=== PATIENT | male | born 1990 | race Caucasian/White ===

== ENCOUNTER 2021-09-04 15:22 | Emergency (ER) | payer OTHER, SELFPAY ==
--- NOTE | ~2021-09-04 | US_ITS ---
US right upper quadrant DATE: 09/04/2021 16:50 INDICATION: Abdominal pain TECHNIQUE: Real-time imaging and Doppler analysis of liver, pancreas, gallbladder areas COMPARISON: None FINDINGS: No gallstones, gallbladder wall thickening or abnormal pericholecystic fluid collection is evident. Negative sonographic Bartlett's sign. The common bile duct measures 4 mm, normal. No hepatic space-occupying mass lesion or normal hepatope rene portal venous flow. The pancreas is partially obscured by bowel gas IMPRESSION: Limited evaluation of pancreas due to overlying bowel gas; otherwise negative examination Reviewed, dictated and finalized at [facility] Reviewed, dictated and finalized at [facility] WORKER IMPRESSION: Limited evaluation of pancreas due to overlying bowel gas; otherwis e negative examination
--- NOTE | ~2021-09-04 | CT_ITS ---
EXAMINATION: CT abdomen pelvis w con DATE: 09/04/2021 17:24 INDICATION: Right upper quadrant and epigastric abdominal pain for 2 days TECHNIQUE: Computed tomography (CT) of the abdomen and pelvis was performed with 100 cc Omnipaque 350 intravenous contrast. Automated exposure control and iterative reconstruction technique were employe d. Exam dose: 1330.65 mGy-cm total exam DLP. COMPARISON: September 04, 2021 right upper quadrant abdominal ultrasound examination FINDINGS: Multiple scattered bilateral lower lung small lung opacities Minimal discoid atelectasis or scarring in the anterior basilar segment of the right lower lobe. Ther e is focal infiltrate or atelectasis in the anterior basilar segment of the left lower lobe. Normal heart size. No pericardial or pleural effusion. The liver, gallbladder, bile ducts, spleen, pancreas, adrenal glands and kidneys are unremarkable. Normal caliber of the abdominal aorta. No intraperitoneal or retroperitoneal or pelvic mass lesion or adenopathy or ascites. Normal appendix. Minimal colonic diverticulosis; no CT evidence of diverticulitis. No bowel obstructi on, bowel wall thickening, pneumatosis or intraperitoneal free air. Small bilateral fat-containing inguinal hernias. Small fat-containing umbilical hernia. There is levoscoliosis of the lumbar spine, dextro scoliosis of the thoracic spine. Mild anterior wedge compression fracture deformity of T12, likely chronic. No suspicious osteolytic o r osteoblastic lesions. IMPRESSION: Mild focal infiltrate or atelectasis in the anterior basilar segment of the left lower l obe Minimal discoid atelectasis or scarring in the anterior basilar segment of the right lower lobe Scattered bilateral 5 mm or smaller lung nodules Normal appendix Minimal colonic diverticulosis; no evidence of diverticulitis Reviewed, dictated and finalized at [facility] Reviewed, dictated and finalized at [facility] RECORDER IMPRESSION: Mild focal infiltrate or atelectasis in the anterior basilar segme nt of the left lower lobe Minimal discoid atelectasis or scarring in the anterior basilar segment of the right lower lobe Scattered bilateral 5 mm or smaller lung nodules Normal appendix Minimal colonic diverticulosis; no evidence of diverticulitis
[2021-09-04 15:24] VITALS: BP 188/120; PULSE 98; RESP 20; TEMP 36.4; O2SAT 99
[2021-09-04 15:53] LABS: Basophils Absolute Auto 0.1 K/mm3 (0.0-0.1); Basophils Percent Auto 0.4 % (0.2-1.2); Eosinophils Absolute Auto 0.2 K/mm3 (0-0.3); Eosinophils Percent Auto 1.4 % (0-4.4); Hematocrit 50.9 % (42.0-52.0); Hemoglobin 17.2 g/dL (14.0-18.0); Immature Granulocyte Absolute 0.04 K/mm3 (0.00-0.031); Immature Granulocyte Percent A 0.4 % (0-0.5); Lymphocytes Absolute Auto 3.42 K/mm3 (0.9-3.2); Mean Corpuscular HGB Conc 33.8 g/dl (32-36); Mean Corpuscular Hemoglobin 30.3 pg (26-34); Mean Corpuscular Volume 89.8 fl (80-100); Mean Platelet Volume 11.2 fl (7.4-10.4); Monocytes Absolute Auto 0.7 K/mm3 (0.1-0.6); Monocytes Percent Auto 5.9 % (2.6-8.5); Neutrophils Absolute Auto 7.1 K/mm3 (1.3-6.7); Neutrophils Percent Auto 61.9 % (45.5-73.1); Platelet Count Result 255 k/mm3 (150-375); Red Blood Count 5.67 M/mm3 (4.6-6.20); White Blood Count 11.4 K/mm3 (4.5-10.0)
[2021-09-04 15:57] LABS: Add Urine Microscopic? NO; Appearance Urine Clear (Clear); Bilirubin Urine Negative (Negative); Blood Urine Negative (Negative); Color Urine Yellow (Yellow); Glucose Urine UA Negative (Negative); Ketones Urine Negative (Negative); Leukocyte Esterase Ur Negative LEU/UL (Negative); Nitrate Urine Negative (Negative); Protein Urine Negative (Negative); Specific Grav Ur 1.024 (1.001-1.035); Urobilinogen Urine Negative mg/dL (<2.0)
[2021-09-04 16:02] LABS: Alanine Aminotransferase 48 U/L (4-50); Albumin Level 4.5 g/dL (3.5-5.1); Alkaline Phosphatase 129 U/L (38-126); Anion Gap 9 mmol/L (8-16); Aspartate Amino Transferase 33 U/L (17-59); Bilirubin,Total 0.3 mg/dL (0.2-1.3); Blood Urea Nitrogen 15 mg/dL (9-20); Calcium 9.4 mg/dL (8.4-10.2); Carbon Dioxide 22 mmol/L (22-30); Chloride 107 mmol/L (98-107); Estimated CRCL calculation 116 ml/min; Estimated Glomerular Filt Rate > 60; Glucose 111 mg/dL (65-110); Lipase 51 U/L (23-300); Sodium 138 mmol/L (137-145)
--- NOTE | 2021-09-04 17:15 | ED.GENADULT ---
HPI - General Adult General Chief complaint: Abdominal Pain Stated complaint: right side pain Time Seen by Provider: 09/04/21 15:34 History of Present Illness HPI narrative: Patient is a 31-year-old male who presents ER with right-sided abdominal pain. Worse with movement and coughing and breathing. Unsure if he injured himself. Reports he noticed that when he coughs after smoking marijuana. Unsure if it is related to eating. Denies fevers or chills or sweats. No radiation. No urinary frequency urgency or dysuria. Has not tried any pain medication. Related Data Allergies Allergy/AdvReac Type Severity Reaction Status Date / Time codeine Allergy Unknown Insomnia Verified 09/04/21 15:41 Sulfa (Sulfonamide Allergy Unknown Unknown Verified 09/04/21 15:41 Antibiotics) Review of Systems Review of Systems: All systems reviewed & are unremarkable except as noted in HPI and below Constitutional: Constitutional: Denies chills, Denies fever(s) and Denies weakness ENT: Reports nasal congestion and Denies sore throat Cardiovascular: Cardiovascular: Denies chest pain, Denies rapid heart rate and Denies radiating jaw, neck or arm pain Respiratory: Respiratory: Reports cough (Chronic from sinus drainage), Denies dyspnea and Denies wheezing Gastrointestinal: Gastrointestinal: Reports abdominal pain, Denies diarrhea, Denies nausea and Denies vomiting Genitourinary: Genitourinary: Denies dysuria, Denies testicular pain and Denies urinary frequency Musculoskeletal: Musculoskeletal: Denies back pain and Denies muscle cramps PMFSH Past Medical History Medical History (Updated 09/04/21 @ 18:15 by Henry Barber MD) Anxiety Surgical History Surgical History (Updated 09/04/21 @ 17:18 by Henry Barber MD) History of tonsillectomy Social History Social History (Updated 09/04/21 @ 17:18 by Henry Barber MD) Substance use type: marijuana Exam Narrative: GENERAL: Well-appearing, well-nourished, and in no acute distress. HEAD: Normocephalic, atraumatic. EYES: PERRL and EOMI. CHEST: Clear to auscultation. No respiratory distress. Occasional cough. HEART: Regular rate and rhythm. Normal peripheral pulses. ABDOMEN: Soft, tender palpation right upper quadrant with guarding, nondistended, normal active bowel sounds. EXTREMITIES: Normal range of motion. No edema. SKIN: Warm, dry, no rash. NEURO: Alert and oriented x3. PSYCH: Normal mood and affect. Course Course Emergency Course: Patient form results. Declined pain medication. Feels comfortable with discharge. Vital Signs Vital signs: Vital Signs Temperature 97.6 F 09/04/21 15:24 Pulse Rate 98 09/04/21 15:24 Respiratory Rate 20 09/04/21 15:24 Blood Pressure 188/120 H 09/04/21 15:24 Pulse Oximetry 99 09/04/21 15:24 Temperature 97.6 F 09/04/21 15:24 Pulse Rate 98 09/04/21 15:24 Respiratory Rate 20 09/04/21 15:24 Blood Pressure 188/120 H 09/04/21 15:24 Pulse Oximetry 99 09/04/21 15:24 Medical Decision Making Vital Signs Vital Signs: Vital Signs Temperature 97.6 F 09/04/21 15:24 Pulse Rate 98 09/04/21 15:24 Respiratory Rate 20 09/04/21 15:24 Blood Pressure 188/120 H 09/04/21 15:24 Pulse Oximetry 99 09/04/21 15:24 Temperature 97.6 F 09/04/21 15:24 Pulse Rate 98 09/04/21 15:24 Respiratory Rate 20 09/04/21 15:24 Blood Pressure 188/120 H 09/04/21 15:24 Pulse Oximetry 99 09/04/21 15:24 Lab Data Result diagrams: 09/04/21 15:42 09/04/21 15:42 Labs: Lab Results 09/04/21 09/04/21 09/04/21 Range/Units 15:42 15:42 15:42 WBC 11.4 H (4.5-10.0) K/mm3 RBC 5.67 (4.6-6.20) M/mm3 Hgb 17.2 (14.0-18.0) g/dL Hct 50.9 (42.0-52.0) % MCV 89.8 (80-100) fl MCH 30.3 (26-34) pg MCHC 33.8 (32-36) g/dl RDW 13.0 (11.5-14.5) % Plt Count 255 (150-375) k/mm3 MPV 11.2 H (7.4-10.4) fl Immature Gran % (Auto) 0.4
== END 2021-09-04 18:20 | disposition home or self-care (01) ==
PROVIDERS: Emergency Provider Emergency Medicine; PCP Family Medicine
DX: S39.011A Strain of muscle, fascia and tendon of abdomen, initial encounter (principal); R91.1 Solitary pulmonary nodule; F41.9 Anxiety disorder, unspecified; X58.XXXA Exposure to other specified factors, initial encounter
CPT/HCPCS: 36415; 74177; 76705; 80053; 81003; 83690; 85025; 99284; Q9967